=== PATIENT | male | born 1970 | race Caucasian/White ===

== ENCOUNTER 2022-10-28 10:21 | Inpatient (IN) | payer OTHER ==
[2022-10-28 10:44] VITALS: BMI 26.6
[2022-10-28] MEDS ORDERED: BENZOCAINE/MENTHOL (CHLORASEPTIC ) LOZENGE MM PRN (11:10)
[2022-10-28] MEDS ORDERED: BISMUTH SUBSALICYLATE 524 MG/30 ML PO PRN (11:10)
[2022-10-28] MEDS ORDERED: IBUPROFEN 400 MG TABLET (FP) PO PRN (11:10)
[2022-10-28] MEDS ORDERED: LOPERAMIDE HCL 2 MG CAPSULE PO PRN (11:10)
[2022-10-28] MEDS ORDERED: DICYCLOMINE HCL 10 MG CAPSULE PO PRN (11:10)
[2022-10-28] MEDS ORDERED: MAG HYDROX/AL HYDROX/SIMETH 30 ML UNIT-DOSE CUP PO PRN (11:10)
[2022-10-28] MEDS ORDERED: ACETAMINOPHEN 325 MG TABLET (FP) PO PRN (11:10)
[2022-10-28] MEDS ORDERED: ONDANSETRON *ODT* 4 MG TABLET SL PRN (11:10)
[2022-10-28] MEDS ORDERED: NICOTINE POLACRILEX 2 MG GUM BUC PRN (11:10)
[2022-10-28] MEDS ORDERED: P-EPHED 60MG/TRIPROLIDI 2.5MG TABLET PO PRN (11:10)
[2022-10-28] MEDS ORDERED: IBUPROFEN 600 MG TABLET (FP) PO PRN (11:10)
[2022-10-28] MEDS ORDERED: BENZONATATE 200 MG CAPSULE PO PRN (11:10)
[2022-10-28] MEDS ORDERED: POLYETHYLENE GLYCOL (HEALTHYLAX) 3350 17 GM PACKET PO PRN (11:10)
[2022-10-28] MEDS ORDERED: MAGNESIUM HYDROX 2400MG/30ML ORAL SUSPENSION 30 ML CUP PO PRN (11:10)
[2022-10-28] MEDS ORDERED: guaiFENesin 600 MG TABLET.ER (FP) PO PRN (11:10)
[2022-10-28] MEDS ORDERED: chlordiazePOXIDE HCL 25 MG CAPSULE PO PRN (14:36)
[2022-10-28] MEDS ORDERED: chlordiazePOXIDE HCL 25 MG CAPSULE PO ONE (15:00)
[2022-10-28] MEDS: chlordiazePOXIDE HCL 25 MG CAPSULE PO SCH ×2 (17:31→22:17)
[2022-10-28] MEDS: hydrOXYzine PAMOATE 25 MG CAPSULE (FP) PO PRN (20:41)
[2022-10-28] MEDS: levETIRAcetam 250 MG TABLET PO SCH (22:16)
[2022-10-28] MEDS: THIAMINE HCL 100 MG TABLET (FP) PO SCH (22:16)
[2022-10-28] MEDS: MELATONIN 5 MG TABLETS PO SCH (22:17)
[2022-10-29] MEDS: chlordiazePOXIDE HCL 25 MG CAPSULE PO SCH ×2 (05:23→10:16)
[2022-10-29] MEDS ORDERED: ESCITALOPRAM OXALATE 10 MG TABLET ONE (09:26)
[2022-10-29 09:56] LABS: HEMOGLOBIN 13.8 GM/dL (11.7-16.9); MCH 32.2 pg (25.7-33.7); MCHC 34.4 g/dl (32.0-35.9); MEAN CELL VOLUME 93.7 fl (80-96); MEAN PLT VOLUME 6.3 fl (7.5-11.1); PLATELET COUNT 94 10^3/uL (134-434); RBC 4.27 M/mm3 (4.00-5.60); RDW 14.2 % (11.9-15.9)
[2022-10-29 09:58] LABS: POTASSIUM 3.9 mmol/L (3.5-5.1)
[2022-10-29 10:14] LABS: ALBUMIN 4.5 g/dl (3.4-5.0); BLOOD UREA NITROGEN 11.5 mg/dL (7-18)
[2022-10-29] MEDS: levETIRAcetam 250 MG TABLET PO SCH ×2 (10:14→22:20)
[2022-10-29] MEDS: PRENATAL VITAMINS W/ FOLIC ACID TABLET (FP) PO SCH (10:14)
[2022-10-29] MEDS: amLODIPine BESYLATE 5 MG TABLET (FP) PO SCH (10:15)
[2022-10-29 10:17] LABS: CREATININE 0.9 mg/dL (0.55-1.3)
[2022-10-29 10:19] LABS: BILIRUBIN,TOTAL 0.8 mg/dL (0.2-1); TOT PROT 7.4 g/dl (6.4-8.2)
[2022-10-29] MEDS: ESCITALOPRAM OXALATE 20 MG TABLET PO SCH (10:19)
[2022-10-29] MEDS ORDERED: chlordiazePOXIDE HCL 25 MG CAPSULE PO ONE (13:00)
[2022-10-29] MEDS ORDERED: LORazepam 1 MG TABLET PO PRN (15:51)
[2022-10-29] MEDS: METHOCARBAMOL 500 MG TABLET PO PRN (17:50)
[2022-10-29] MEDS: hydrOXYzine PAMOATE 25 MG CAPSULE (FP) PO PRN (17:50)
[2022-10-29] MEDS: LORazepam 2 MG TABLET PO SCH ×2 (17:50→22:20)
[2022-10-29] MEDS: THIAMINE HCL 100 MG TABLET (FP) PO SCH (22:20)
[2022-10-29] MEDS: MELATONIN 5 MG TABLETS PO SCH (22:20)
[2022-10-30] MEDS ORDERED: chlordiazePOXIDE HCL 25 MG CAPSULE PO SCH (05:00)
[2022-10-30] MEDS: LORazepam 2 MG TABLET PO SCH ×4 (05:11→22:12)
[2022-10-30] MEDS ORDERED: ESCITALOPRAM OXALATE 10 MG TABLET ONE (09:31)
[2022-10-30] MEDS: PRENATAL VITAMINS W/ FOLIC ACID TABLET (FP) PO SCH (10:34)
[2022-10-30] MEDS: amLODIPine BESYLATE 5 MG TABLET (FP) PO SCH (10:35)
[2022-10-30] MEDS: METHOCARBAMOL 500 MG TABLET PO PRN (10:35)
[2022-10-30] MEDS: hydrOXYzine PAMOATE 25 MG CAPSULE (FP) PO PRN (10:35)
[2022-10-30] MEDS: levETIRAcetam 250 MG TABLET PO SCH ×2 (10:35→22:12)
[2022-10-30] MEDS: ESCITALOPRAM OXALATE 20 MG TABLET PO SCH (10:35)
[2022-10-30] MEDS: MELATONIN 5 MG TABLETS PO SCH (22:12)
[2022-10-30] MEDS: THIAMINE HCL 100 MG TABLET (FP) PO SCH (22:12)
[2022-10-31] MEDS ORDERED: chlordiazePOXIDE HCL 10 MG CAPSULE PO PRN
[2022-10-31] MEDS ORDERED: chlordiazePOXIDE HCL 10 MG CAPSULE PO SCH (05:00)
[2022-10-31] MEDS: LORazepam 1 MG TABLET PO SCH ×4 (05:48→22:10)
[2022-10-31] MEDS ORDERED: ESCITALOPRAM OXALATE 10 MG TABLET ONE (09:06)
[2022-10-31] MEDS: PRENATAL VITAMINS W/ FOLIC ACID TABLET (FP) PO SCH (10:04)
[2022-10-31] MEDS: hydrOXYzine PAMOATE 25 MG CAPSULE (FP) PO PRN ×2 (10:04→10:07)
[2022-10-31] MEDS: levETIRAcetam 250 MG TABLET PO SCH (10:05)
[2022-10-31] MEDS: METHOCARBAMOL 500 MG TABLET PO PRN ×2 (10:05→22:10)
[2022-10-31] MEDS: amLODIPine BESYLATE 5 MG TABLET (FP) PO SCH (10:05)
[2022-10-31] MEDS: ESCITALOPRAM OXALATE 20 MG TABLET PO SCH (10:05)
[2022-10-31] MEDS: MELATONIN 5 MG TABLETS PO SCH (22:10)
[2022-10-31] MEDS: THIAMINE HCL 100 MG TABLET (FP) PO SCH (22:10)
[2022-11-01] MEDS ORDERED: chlordiazePOXIDE HCL 10 MG CAPSULE PO SCH (05:00)
[2022-11-01] MEDS: LORazepam 0.5 MG TABLET PO SCH ×4 (05:50→22:26)
[2022-11-01] MEDS ORDERED: ESCITALOPRAM OXALATE 10 MG TABLET ONE (08:42)
[2022-11-01] MEDS: PRENATAL VITAMINS W/ FOLIC ACID TABLET (FP) PO SCH (10:12)
[2022-11-01] MEDS: amLODIPine BESYLATE 5 MG TABLET (FP) PO SCH (10:12)
[2022-11-01] MEDS: ESCITALOPRAM OXALATE 20 MG TABLET PO SCH (10:12)
[2022-11-01] MEDS: THIAMINE HCL 100 MG TABLET (FP) PO SCH (22:25)
[2022-11-01] MEDS: MELATONIN 5 MG TABLETS PO SCH (22:25)
[2022-11-02] MEDS ORDERED: LORazepam 0.5 MG TABLET PO ONE (05:00)
[2022-11-02] MEDS ORDERED: chlordiazePOXIDE HCL 10 MG CAPSULE PO ONE (05:00)
[2022-11-02 06:24] VITALS: RESP 18
[2022-11-02] MEDS ORDERED: ESCITALOPRAM OXALATE 10 MG TABLET ONE (09:19)
[2022-11-02] MEDS: amLODIPine BESYLATE 5 MG TABLET (FP) PO SCH (09:44)
[2022-11-02] MEDS: PRENATAL VITAMINS W/ FOLIC ACID TABLET (FP) PO SCH (09:44)
[2022-11-02] MEDS: ESCITALOPRAM OXALATE 20 MG TABLET PO SCH (09:44)
[2022-11-02 12:55] VITALS: BP 111/86; PULSE 71; TEMP 97.7
== END 2022-11-02 14:46 | disposition other institution (70) | DRG 775 ==
LOC: YASAS 10:21 → Y6N 11:36
PROVIDERS: ADMIT Allergy & Immunology; ATTEND Surgery
PROC: HZ2ZZZZ Detoxification Services for Substance Abuse Treatment (ICD-10-PCS; principal; 2022-10-28)
DX: F10.230 Alcohol dependence with withdrawal, uncomplicated (principal); F10.280 Alcohol dependence with alcohol-induced anxiety disorder; F10.282 Alcohol dependence with alcohol-induced sleep disorder; F33.0 Major depressive disorder, recurrent, mild; I10 Essential (primary) hypertension; E78.5 Hyperlipidemia, unspecified; R74.01 Elevation of levels of liver transaminase levels; R74.8 Abnormal levels of other serum enzymes; Z87.891 Personal history of nicotine dependence
CPT/HCPCS: 36415; 80053; 84450; 85027; 86780; 87635; 87811

== ENCOUNTER 2023-04-03 11:23 | Inpatient (IN) | payer OTHER ==
[2023-04-03 11:52] VITALS: BMI 25.8
[2023-04-03] MEDS ORDERED: MAG HYDROX/AL HYDROX/SIMETH 30 ML UNIT-DOSE CUP PO PRN (12:28)
[2023-04-03] MEDS ORDERED: BENZONATATE 200 MG CAPSULE PO PRN (12:28)
[2023-04-03] MEDS ORDERED: MAGNESIUM HYDROX 2400MG/30ML ORAL SUSPENSION 30 ML CUP PO PRN (12:28)
[2023-04-03] MEDS ORDERED: IBUPROFEN 600 MG TABLET (FP) PO PRN (12:28)
[2023-04-03] MEDS ORDERED: guaiFENesin 600 MG TABLET.ER (FP) PO PRN (12:28)
[2023-04-03] MEDS ORDERED: ONDANSETRON *ODT* 4 MG TABLET SL PRN (12:28)
[2023-04-03] MEDS ORDERED: DICYCLOMINE HCL 10 MG CAPSULE PO PRN (12:28)
[2023-04-03] MEDS ORDERED: BISMUTH SUBSALICYLATE 524 MG/30 ML PO PRN (12:28)
[2023-04-03] MEDS ORDERED: NALOXONE HCL 0.4 MG/ML VIAL IM PRN (12:28)
[2023-04-03] MEDS ORDERED: POLYETHYLENE GLYCOL (HEALTHYLAX) 3350 17 GM PACKET PO PRN (12:28)
[2023-04-03] MEDS ORDERED: IBUPROFEN 400 MG TABLET (FP) PO PRN (12:28)
[2023-04-03] MEDS ORDERED: BENZOCAINE/MENTHOL (CHLORASEPTIC ) LOZENGE MM PRN (12:28)
[2023-04-03] MEDS ORDERED: NALOXONE HCL (KLOXXADO) 8 MG SPRAY NS PRN (12:28)
[2023-04-03] MEDS ORDERED: ACETAMINOPHEN 325 MG TABLET (FP) PO PRN (12:28)
[2023-04-03] MEDS: LORazepam 1 MG TABLET PO PRN (13:48)
[2023-04-03] MEDS ORDERED: LORazepam 1 MG TABLET ONE (13:50)
[2023-04-03] MEDS: LORazepam 2 MG TABLET PO SCH (17:19)
[2023-04-03] MEDS: THIAMINE HCL 100 MG TABLET (FP) PO SCH (23:00)
[2023-04-03] MEDS: MELATONIN 5 MG TABLETS PO SCH (23:00)
[2023-04-04] MEDS: PRENATAL VITAMINS W/ FOLIC ACID TABLET (FP) PO SCH (10:12)
[2023-04-04] MEDS: ESCITALOPRAM OXALATE 10 MG TABLET PO SCH (10:12)
[2023-04-04] MEDS: amLODIPine BESYLATE 5 MG TABLET (FP) PO SCH (10:12)
[2023-04-04 14:33] LABS: HEMOGLOBIN 14.2 GM/dL (11.7-16.9); MCHC 33.9 g/dl (32.0-35.9); MEAN CELL VOLUME 94.1 fl (80-96); MEAN PLT VOLUME 6.4 fl (7.5-11.1); PLATELET COUNT 72 10^3/uL (134-434); RBC 4.46 M/mm3 (4.00-5.60); WHITE BLOOD COUNT 3.2 K/mm3 (4.0-10.0)
[2023-04-04 14:41] LABS: POTASSIUM 4.7 mmol/L (3.5-5.1)
[2023-04-04 15:17] LABS: BLOOD UREA NITROGEN 13.7 mg/dL (7-18); CALCIUM 8.8 mg/dL (8.5-10.1)
[2023-04-04 15:21] LABS: ALBUMIN 4.5 g/dl (3.4-5.0)
[2023-04-04 15:22] LABS: CREATININE 0.8 mg/dL (0.55-1.3)
[2023-04-04 15:23] LABS: BILIRUBIN,TOTAL 1.1 mg/dL (0.2-1)
[2023-04-04 15:24] LABS: TOT PROT 7.5 g/dl (6.4-8.2)
[2023-04-04] MEDS: METHOCARBAMOL 500 MG TABLET PO PRN (22:20)
[2023-04-05] MEDS: LORazepam 1 MG TABLET PO SCH (05:16)
[2023-04-05] MEDS: ROSUVASTATIN CA 20 MG TABLET PO SCH (22:18)
[2023-04-06] MEDS ORDERED: LORazepam 0.5 MG TABLET PO PRN
[2023-04-06] MEDS: LORazepam 0.5 MG TABLET PO SCH (05:07)
[2023-04-06] MEDS: amLODIPine BESYLATE 10 MG TABLET (FP) PO SCH (10:27)
[2023-04-06] MEDS: hydrOXYzine PAMOATE 25 MG CAPSULE (FP) PO PRN (22:13)
[2023-04-07] MEDS: LORazepam 0.5 MG TABLET PO ONE (05:11)
[2023-04-07] MEDS: LOPERAMIDE HCL 2 MG CAPSULE PO PRN (09:27)
[2023-04-07 09:41] VITALS: BP 119/78; PULSE 73; RESP 16; TEMP 97.7
== END 2023-04-07 10:15 | disposition home or self-care (01) | DRG 775 ==
LOC: YASAS 11:23 → Y3N 13:29 → Y6N 13:58
PROVIDERS: ADMIT Allergy & Immunology; ATTEND Allergy & Immunology
PROC: HZ2ZZZZ Detoxification Services for Substance Abuse Treatment (ICD-10-PCS; principal; 2023-04-03)
DX: F10.230 Alcohol dependence with withdrawal, uncomplicated (principal); F33.0 Major depressive disorder, recurrent, mild; D69.6 Thrombocytopenia, unspecified; I10 Essential (primary) hypertension; E78.5 Hyperlipidemia, unspecified; R74.8 Abnormal levels of other serum enzymes
CPT/HCPCS: 36415; 80053; 80307; 84450; 85027; 86780; 87635

== ENCOUNTER 2023-04-07 10:52 | Emergency (ER) | payer OTHER ==
[2023-04-07 11:01] VITALS: RESP 16; BMI 26.6
[2023-04-07 12:18] LABS: BASO % 0.6 % (0-2.0); HEMATOCRIT 40.8 % (35.4-49); HEMOGLOBIN 14.4 GM/dL (11.7-16.9); LYMPH % 10.1 % (8-40); MCH 33.1 pg (25.7-33.7); MCHC 35.4 g/dl (32.0-35.9); MEAN CELL VOLUME 93.4 fl (80-96); MEAN PLT VOLUME 6.3 fl (7.5-11.1); MONO % 10.7 % (3.8-10.2); NEUT % 77.6 % (42.8-82.8); PLATELET COUNT 97 10^3/uL (134-434); RBC 4.37 M/mm3 (4.00-5.60); RDW 16.2 % (11.9-15.9); WHITE BLOOD COUNT 4.5 K/mm3 (4.0-10.0)
[2023-04-07 12:22] LABS: INR 1.03 (0.83-1.09)
[2023-04-07 12:25] LABS: ACTIVATED PTT 26.3 SECONDS (25.2-36.5)
[2023-04-07 12:37] LABS: POTASSIUM 3.9 mmol/L (3.5-5.1)
[2023-04-07 12:39] LABS: ALBUMIN 4.3 g/dl (3.4-5.0); BLOOD UREA NITROGEN 14.8 mg/dL (7-18)
[2023-04-07 12:44] LABS: TOT PROT 7.2 g/dl (6.4-8.2)
[2023-04-07 12:45] LABS: BILIRUBIN,TOTAL 1.3 mg/dL (0.2-1)
[2023-04-07 13:10] VITALS: BP 125/90; PULSE 84; TEMP 98.9
== END 2023-04-07 13:48 | disposition home or self-care (01) ==
LOC: JER 10:52
DX: D69.6 Thrombocytopenia, unspecified (principal); F10.188 Alcohol abuse with other alcohol-induced disorder
CPT/HCPCS: 36415; 80053; 85025; 85610; 85730; 99283-25

== ENCOUNTER 2023-06-08 14:31 | Inpatient (IN) | payer OTHER ==
[2023-06-08 15:40] VITALS: BMI 25.9
[2023-06-08] MEDS ORDERED: DICYCLOMINE HCL 10 MG CAPSULE PO PRN (17:54)
[2023-06-08] MEDS ORDERED: BISMUTH SUBSALICYLATE 524 MG/30 ML PO PRN (17:54)
[2023-06-08] MEDS ORDERED: IBUPROFEN 600 MG TABLET (FP) PO PRN (17:54)
[2023-06-08] MEDS ORDERED: MAG HYDROX/AL HYDROX/SIMETH 30 ML UNIT-DOSE CUP PO PRN (17:54)
[2023-06-08] MEDS ORDERED: NALOXONE HCL (KLOXXADO) 8 MG SPRAY NS PRN (17:54)
[2023-06-08] MEDS ORDERED: IBUPROFEN 400 MG TABLET (FP) PO PRN (17:54)
[2023-06-08] MEDS ORDERED: guaiFENesin 600 MG TABLET.ER (FP) PO PRN (17:54)
[2023-06-08] MEDS ORDERED: BENZOCAINE/MENTHOL (CHLORASEPTIC ) LOZENGE MM PRN (17:54)
[2023-06-08] MEDS ORDERED: MAGNESIUM HYDROX 2400MG/30ML ORAL SUSPENSION 30 ML CUP PO PRN (17:54)
[2023-06-08] MEDS ORDERED: ONDANSETRON *ODT* 4 MG TABLET SL PRN (17:54)
[2023-06-08] MEDS ORDERED: BENZONATATE 200 MG CAPSULE PO PRN (17:54)
[2023-06-08] MEDS ORDERED: ACETAMINOPHEN 325 MG TABLET (FP) PO PRN (17:54)
[2023-06-08] MEDS ORDERED: NALOXONE HCL 0.4 MG/ML VIAL IM PRN (17:54)
[2023-06-08] MEDS ORDERED: POLYETHYLENE GLYCOL (HEALTHYLAX) 3350 17 GM PACKET PO PRN (17:54)
[2023-06-08] MEDS: LORazepam 1 MG TABLET PO PRN (18:51)
[2023-06-08] MEDS: amLODIPine BESYLATE 2.5 MG TABLET (FP) PO ONE (19:28)
[2023-06-08] MEDS: LORazepam 2 MG TABLET PO SCH (22:20)
[2023-06-08] MEDS: MELATONIN 5 MG TABLETS PO SCH (22:21)
[2023-06-08] MEDS: THIAMINE HCL 100 MG TABLET (FP) PO SCH (22:21)
[2023-06-09] MEDS: METHOCARBAMOL 500 MG TABLET PO PRN (05:43)
[2023-06-09] MEDS: hydrOXYzine PAMOATE 25 MG CAPSULE (FP) PO PRN (05:43)
[2023-06-09] MEDS: amLODIPine BESYLATE 5 MG TABLET (FP) PO SCH (10:39)
[2023-06-09] MEDS: PRENATAL VITAMINS W/ FOLIC ACID TABLET (FP) PO SCH (10:39)
[2023-06-09 12:15] LABS: HEMATOCRIT 39.6 % (35.4-49); HEMOGLOBIN 13.1 GM/dL (11.7-16.9); MCH 31.6 pg (25.7-33.7); MCHC 33.1 g/dl (32.0-35.9); MEAN CELL VOLUME 95.4 fl (80-96); MEAN PLT VOLUME 6.6 fl (7.5-11.1); PLATELET COUNT 62 10^3/uL (134-434); RBC 4.16 M/mm3 (4.00-5.60); RDW 14.5 % (11.9-15.9); WHITE BLOOD COUNT 2.5 K/mm3 (4.0-10.0)
[2023-06-09 12:53] LABS: CHLORIDE 99 mmol/L (98-107); POTASSIUM 3.9 mmol/L (3.5-5.1); SODIUM 135 mmol/L (136-145)
[2023-06-09 13:00] LABS: ALBUMIN 4.2 g/dl (3.4-5.0)
[2023-06-09 13:01] LABS: ANION GAP 7 mmol/L (4-13); BLOOD UREA NITROGEN 13.5 mg/dL (7-18); CALCIUM 9.3 mg/dL (8.5-10.1); CO2 29 mmol/L (21-32); GLUCOSE,RANDOM 114 mg/dL (74-106)
[2023-06-09 13:04] LABS: SGPT/ALT 191 U/L (13-61)
[2023-06-09 13:05] LABS: CREATININE 0.8 mg/dL (0.55-1.3); SGOT/AST 201 U/L (15-37)
[2023-06-09 13:06] LABS: BILIRUBIN,TOTAL 1.9 mg/dL (0.2-1); TOT PROT 6.8 g/dl (6.4-8.2)
[2023-06-09 13:08] LABS: ALK PHOS 60 U/L (45-117)
[2023-06-09] MEDS ORDERED: ROSUVASTATIN CA 10 MG TABLET ONE (21:43)
[2023-06-09] MEDS: ROSUVASTATIN CA 20 MG TABLET PO SCH (22:32)
[2023-06-09] MEDS: LOPERAMIDE HCL 2 MG CAPSULE PO PRN (22:34)
[2023-06-10] MEDS: LORazepam 1 MG TABLET PO SCH (05:34)
[2023-06-10 11:57] LABS: POTASSIUM 3.3 mmol/L (3.5-5.1)
[2023-06-10 12:02] LABS: HEMATOCRIT 40.5 % (35.4-49); HEMOGLOBIN 13.6 GM/dL (11.7-16.9); MCH 31.7 pg (25.7-33.7); MCHC 33.6 g/dl (32.0-35.9); MEAN CELL VOLUME 94.2 fl (80-96); MEAN PLT VOLUME 6.7 fl (7.5-11.1); PLATELET COUNT 64 10^3/uL (134-434); RDW 14.3 % (11.9-15.9); WHITE BLOOD COUNT 2.9 K/mm3 (4.0-10.0)
[2023-06-10 12:04] LABS: BLOOD UREA NITROGEN 14.4 mg/dL (7-18); CALCIUM 9.5 mg/dL (8.5-10.1)
[2023-06-10 12:05] LABS: ALBUMIN 4.1 g/dl (3.4-5.0)
[2023-06-10 12:07] LABS: CREATININE 0.9 mg/dL (0.55-1.3)
[2023-06-10 12:08] LABS: BILIRUBIN,TOTAL 1.6 mg/dL (0.2-1); TOT PROT 6.7 g/dl (6.4-8.2)
[2023-06-10] MEDS: POTASSIUM CHLORIDE ORAL LIQUID 20 MEQ/15 ML PO ONE (16:03)
[2023-06-10] MEDS: POTASSIUM CHLORIDE ORAL LIQUID 20 MEQ/15 ML PO SCH (22:10)
[2023-06-11] MEDS ORDERED: LORazepam 0.5 MG TABLET PO PRN
[2023-06-11] MEDS: LORazepam 0.5 MG TABLET PO SCH (05:25)
[2023-06-12] MEDS: LORazepam 0.5 MG TABLET PO ONE (05:38)
[2023-06-12 09:07] VITALS: BP 143/97; PULSE 65; RESP 18; TEMP 97.5
== END 2023-06-12 09:55 | disposition home or self-care (01) | DRG 775 ==
LOC: YASAS 14:31 → Y6N 18:02
PROVIDERS: ADMIT Allergy & Immunology; ATTEND Psychiatry & Neurology Psychiatry
PROC: HZ2ZZZZ Detoxification Services for Substance Abuse Treatment (ICD-10-PCS; principal; 2023-06-08)
DX: F10.230 Alcohol dependence with withdrawal, uncomplicated (principal); F33.9 Major depressive disorder, recurrent, unspecified; F10.282 Alcohol dependence with alcohol-induced sleep disorder; F10.280 Alcohol dependence with alcohol-induced anxiety disorder; D69.6 Thrombocytopenia, unspecified; E87.6 Hypokalemia; E78.5 Hyperlipidemia, unspecified; I10 Essential (primary) hypertension; R74.8 Abnormal levels of other serum enzymes; Z87.891 Personal history of nicotine dependence; Z86.69 Personal history of other diseases of the nervous system and sense organs
CPT/HCPCS: 36415; 80053; 80307; 83036; 85027; 86780; 93005; 93010

== ENCOUNTER 2023-08-07 11:31 | Inpatient (IN) | payer OTHER ==
[2023-08-07 12:11] VITALS: BMI 25.7
[2023-08-07] MEDS ORDERED: NALOXONE (NARCAN) HCL 4 MG/0.1 ML SPRAY NS PRN (12:49)
[2023-08-07] MEDS ORDERED: IBUPROFEN 600 MG TABLET (FP) PO PRN (12:49)
[2023-08-07] MEDS ORDERED: MAGNESIUM HYDROX 2400MG/30ML ORAL SUSPENSION 30 ML CUP PO PRN (12:49)
[2023-08-07] MEDS ORDERED: BENZOCAINE/MENTHOL (CHLORASEPTIC ) LOZENGE MM PRN (12:49)
[2023-08-07] MEDS ORDERED: IBUPROFEN 400 MG TABLET (FP) PO PRN (12:49)
[2023-08-07] MEDS ORDERED: MAG HYDROX/AL HYDROX/SIMETH 30 ML UNIT-DOSE CUP PO PRN (12:49)
[2023-08-07] MEDS ORDERED: BISMUTH SUBSALICYLATE 262 MG/15 ML BTL PO PRN (12:49)
[2023-08-07] MEDS ORDERED: NALOXONE HCL 0.4 MG/ML VIAL IM PRN (12:49)
[2023-08-07] MEDS ORDERED: POLYETHYLENE GLYCOL (HEALTHYLAX) 3350 17 GM PACKET PO PRN (12:49)
[2023-08-07] MEDS ORDERED: guaiFENesin 600 MG TABLET.ER (FP) PO PRN (12:49)
[2023-08-07] MEDS ORDERED: ONDANSETRON *ODT* 4 MG TABLET SL PRN (12:49)
[2023-08-07] MEDS ORDERED: BENZONATATE 200 MG CAPSULE PO PRN (12:49)
[2023-08-07] MEDS ORDERED: ACETAMINOPHEN 325 MG TABLET (FP) PO PRN (12:49)
[2023-08-07] MEDS ORDERED: LOPERAMIDE HCL 2 MG CAPSULE PO PRN (12:49)
[2023-08-07] MEDS ORDERED: PRENATAL VITAMINS W/ FOLIC ACID TABLET (FP) PO ONE (13:20)
[2023-08-07] MEDS ORDERED: LORazepam 1 MG TABLET ONE (13:20)
[2023-08-07] MEDS: PRENATAL VITAMINS W/ FOLIC ACID TABLET (FP) PO SCH (13:24)
[2023-08-07] MEDS: LORazepam 1 MG TABLET PO PRN (13:25)
[2023-08-07] MEDS: hydrOXYzine PAMOATE 25 MG CAPSULE (FP) PO PRN (13:44)
[2023-08-07] MEDS: METHOCARBAMOL 500 MG TABLET PO PRN (13:44)
[2023-08-07] MEDS: amLODIPine BESYLATE 5 MG TABLET (FP) PO SCH (14:18)
[2023-08-07] MEDS: cloNIDine HCL 0.1 MG TABLET PO ONE (14:18)
[2023-08-07] MEDS: LORazepam 2 MG TABLET PO SCH (17:17)
[2023-08-07] MEDS: DICYCLOMINE HCL 10 MG CAPSULE PO PRN (17:21)
[2023-08-07] MEDS: THIAMINE 100 MG TABLET PO SCH (22:30)
[2023-08-07] MEDS: MELATONIN 5 MG TABLETS PO SCH (22:31)
[2023-08-07] MEDS: ROSUVASTATIN CA 20 MG TABLET PO SCH (22:31)
[2023-08-08 15:17] LABS: POTASSIUM 3.2 mmol/L (3.5-5.1)
[2023-08-08 15:18] LABS: CALCIUM 9.2 mg/dL (8.5-10.1)
[2023-08-08 15:19] LABS: ALBUMIN 4.2 g/dl (3.4-5.0); BLOOD UREA NITROGEN 17.9 mg/dL (7-18); HEMATOCRIT 36.5 % (35.4-49); HEMOGLOBIN 12.8 GM/dL (11.7-16.9); MCH 32.2 pg (25.7-33.7); MEAN CELL VOLUME 92.1 fl (80-96); MEAN PLT VOLUME 6.5 fl (7.5-11.1); PLATELET COUNT 59 10^3/uL (134-434); RBC 3.97 M/mm3 (4.00-5.60); RDW 16.1 % (11.9-15.9); WHITE BLOOD COUNT 2.3 K/mm3 (4.0-10.0)
[2023-08-08 15:22] LABS: CREATININE 0.9 mg/dL (0.55-1.3)
[2023-08-08 15:24] LABS: BILIRUBIN,TOTAL 1.6 mg/dL (0.2-1); TOT PROT 6.7 g/dl (6.4-8.2)
[2023-08-08] MEDS: POTASSIUM CHLORIDE ORAL LIQUID 20 MEQ/15 ML PO ONE ×2 (15:36→22:26)
[2023-08-08] MEDS ORDERED: ROSUVASTATIN CA 10 MG TABLET ONE (21:42)
[2023-08-09] MEDS: LORazepam 1 MG TABLET PO SCH (05:25)
[2023-08-09 11:58] LABS: POTASSIUM 3.9 mmol/L (3.5-5.1)
[2023-08-09 12:02] LABS: CALCIUM 9.2 mg/dL (8.5-10.1)
[2023-08-09 12:03] LABS: BLOOD UREA NITROGEN 13.3 mg/dL (7-18)
[2023-08-09 12:06] LABS: CREATININE 0.9 mg/dL (0.55-1.3)
[2023-08-09] MEDS: LACTULOSE 20 GM/30 ML UDC (FOR ORAL USE ONLY) PO SCH (14:23)
[2023-08-10] MEDS ORDERED: LORazepam 0.5 MG TABLET PO PRN
[2023-08-10] MEDS: LORazepam 0.5 MG TABLET PO SCH (05:46)
[2023-08-11] MEDS: LORazepam 0.5 MG TABLET PO ONE (05:36)
[2023-08-11 06:26] VITALS: RESP 18
[2023-08-11 08:50] VITALS: BP 140/95; PULSE 69; TEMP 98.7
== END 2023-08-11 09:20 | disposition home or self-care (01) | DRG 775 ==
LOC: YASAS 11:31 → Y6N 13:01
PROVIDERS: ADMIT Allergy & Immunology; ATTEND Surgery
PROC: HZ2ZZZZ Detoxification Services for Substance Abuse Treatment (ICD-10-PCS; principal; 2023-08-07)
DX: F10.230 Alcohol dependence with withdrawal, uncomplicated (principal); F10.282 Alcohol dependence with alcohol-induced sleep disorder; F10.280 Alcohol dependence with alcohol-induced anxiety disorder; F32.9 Major depressive disorder, single episode, unspecified; D72.819 Decreased white blood cell count, unspecified; E78.5 Hyperlipidemia, unspecified; E87.6 Hypokalemia; I10 Essential (primary) hypertension; R74.8 Abnormal levels of other serum enzymes; R79.89 Other specified abnormal findings of blood chemistry
CPT/HCPCS: 36415; 80048; 80053; 80305; 80307; 82140; 82962; 83036; 84132; 85027; 86780; 93005; 93010

== ENCOUNTER 2023-12-22 13:09 | Inpatient (IN) | payer OTHER ==
[2023-12-22] MEDS ORDERED: MAG HYDROX/AL HYDROX/SIMETH 30 ML UNIT-DOSE CUP PO PRN (15:33)
[2023-12-22] MEDS ORDERED: POLYETHYLENE GLYCOL (HEALTHYLAX) 3350 17 GM PACKET PO PRN (15:33)
[2023-12-22] MEDS ORDERED: BENZONATATE 200 MG CAPSULE PO PRN (15:33)
[2023-12-22] MEDS ORDERED: MAGNESIUM HYDROX 2400MG/30ML ORAL SUSPENSION 30 ML CUP PO PRN (15:33)
[2023-12-22] MEDS ORDERED: BENZOCAINE/MENTHOL (CHLORASEPTIC ) LOZENGE MM PRN (15:33)
[2023-12-22] MEDS ORDERED: BISMUTH SUBSALICYLATE 524 MG/30 ML PO PRN (15:33)
[2023-12-22] MEDS ORDERED: IBUPROFEN 400 MG TABLET (FP) PO PRN (15:33)
[2023-12-22] MEDS ORDERED: DICYCLOMINE HCL 10 MG CAPSULE PO PRN (15:33)
[2023-12-22] MEDS ORDERED: guaiFENesin 600 MG TABLET.ER (FP) PO PRN (15:33)
[2023-12-22] MEDS ORDERED: ONDANSETRON *ODT* 4 MG TABLET SL PRN (15:33)
[2023-12-22] MEDS ORDERED: ACETAMINOPHEN 325 MG TABLET (FP) PO PRN (15:33)
[2023-12-22] MEDS ORDERED: IBUPROFEN 600 MG TABLET (FP) PO PRN (15:33)
[2023-12-22] MEDS ORDERED: LOPERAMIDE HCL 2 MG CAPSULE PO PRN (15:33)
[2023-12-22] MEDS ORDERED: METOPROLOL TARTRATE 25 MG TABLET (FP) ONE (16:07)
[2023-12-22] MEDS ORDERED: diazePAM 5 MG TABLET ONE ×2 (16:07→17:23)
[2023-12-22] MEDS: diazePAM 5 MG TABLET PO PRN (16:09)
[2023-12-22] MEDS: METOPROLOL TARTRATE 25 MG TABLET (FP) PO ONE (16:10)
[2023-12-22 16:26] VITALS: BMI 25.8
[2023-12-22] MEDS: diazePAM 5 MG TABLET PO SCH (17:26)
[2023-12-22] MEDS: THIAMINE 100 MG TABLET PO SCH (22:46)
[2023-12-22] MEDS: ROSUVASTATIN CA 20 MG TABLET PO SCH (22:46)
[2023-12-22] MEDS: MELATONIN 5 MG TABLETS PO SCH (22:46)
[2023-12-23] MEDS: amLODIPine BESYLATE 5 MG TABLET (FP) PO SCH (10:13)
[2023-12-23] MEDS: PRENATAL VITAMINS W/ FOLIC ACID TABLET (FP) PO SCH (10:13)
[2023-12-23 14:41] LABS: HEMATOCRIT 39.8 % (35.4-49); HEMOGLOBIN 13.8 GM/dL (11.7-16.9); MCH 31.2 pg (25.7-33.7); MCHC 34.5 g/dl (32.0-35.9); MEAN CELL VOLUME 90.5 fl (80-96); MEAN PLT VOLUME 5.9 fl (7.5-11.1); PLATELET COUNT 142 10^3/uL (134-434); WHITE BLOOD COUNT 3.3 K/mm3 (4.0-10.0)
[2023-12-23 15:10] LABS: CHLORIDE 101 mmol/L (98-107); POTASSIUM 3.9 mmol/L (3.5-5.1); SODIUM 138 mmol/L (136-145)
[2023-12-23 16:01] LABS: CALCIUM 9.7 mg/dL (8.5-10.1)
[2023-12-23 16:02] LABS: ANION GAP 8 mmol/L (4-13); BLOOD UREA NITROGEN 17.7 mg/dL (7-18); CO2 29 mmol/L (21-32); GLUCOSE,RANDOM 106 mg/dL (74-106)
[2023-12-23 16:03] LABS: ALBUMIN 4.2 g/dl (3.4-5.0)
[2023-12-23 16:05] LABS: CREATININE 0.8 mg/dL (0.55-1.3)
[2023-12-23 16:06] LABS: BILIRUBIN,TOTAL 1.4 mg/dL (0.2-1); SGOT/AST 71 U/L (15-37); SGPT/ALT 102 U/L (13-61); TOT PROT 6.9 g/dl (6.4-8.2)
[2023-12-23 16:08] LABS: ALK PHOS 57 U/L (45-117)
[2023-12-23] MEDS: MELATONIN 5 MG TABLETS PO SCH (22:18)
[2023-12-23] MEDS: METHOCARBAMOL 500 MG TABLET PO PRN (22:18)
[2023-12-24] MEDS: diazePAM 5 MG TABLET PO SCH (06:02)
[2023-12-25] MEDS: diazePAM 5 MG TABLET PO SCH (06:03)
[2023-12-26] MEDS: diazePAM 5 MG TABLET PO ONE (05:48)
[2023-12-26 17:22] VITALS: RESP 18
[2023-12-27 09:59] VITALS: BP 121/73; PULSE 62; TEMP 98
== END 2023-12-27 11:51 | disposition home or self-care (01) | DRG 775 ==
LOC: YASAS 13:09 → Y3N 16:43
PROVIDERS: ADMIT Allergy & Immunology; ATTEND Surgery
PROC: HZ2ZZZZ Detoxification Services for Substance Abuse Treatment (ICD-10-PCS; principal; 2023-12-22)
DX: F10.230 Alcohol dependence with withdrawal, uncomplicated (principal); F10.282 Alcohol dependence with alcohol-induced sleep disorder; F32.9 Major depressive disorder, single episode, unspecified; E78.2 Mixed hyperlipidemia; I10 Essential (primary) hypertension
CPT/HCPCS: 36415; 80053; 80305; 80307; 85027